=== PATIENT | female | born 1960 | race Caucasian/White ===

== ENCOUNTER 2023-01-11 19:07 | Emergency (ER) | payer OTHER ==
[2023-01-11] MEDS ORDERED: Sodium Chloride 0.9% 10 ML Syringe FLUSH PRN (20:39)
[2023-01-11] MEDS ORDERED: Iopamidol 612 MG/ML 100 ML Bottle IV ONE (20:56)
[2023-01-11] MEDS ORDERED: Sodium Chloride 0.9% 50 ML IV ONE (20:56)
[2023-01-11] MEDS ORDERED: Sodium Chloride 0.9% 10 ML Syringe FLUSH ONE (20:56)
== END 2023-01-11 22:35 | disposition home or self-care (01) ==
LOC: JP.ED 19:07
DX: M54.2 Cervicalgia (principal); I10 Essential (primary) hypertension; Z86.16 Personal history of COVID-19; Z98.890 Other specified postprocedural states
CPT/HCPCS: 72127; 76377; 99283; J3490; Q9967